=== PATIENT | female | born 2000 | race Caucasian/White ===

== ENCOUNTER 2022-10-15 19:50 | Inpatient (IN) ==
[2022-10-15 20:32] LABS: Appearance Urine Cloudy (Clear); Bacteria Urine Automated 1+ (Negative); Bilirubin Urine Negative (Negative); Blood Urine Trace (Negative); Color Urine Yellow; Epithelial Cell Urine Auto 20-30 /lpf (0-5); Glucose Urine UA Negative (Negative); Ketones Urine Negative (Negative); Leukocyte Esterase Urine Negative (Negative); Nitrite Urine Negative (Negative); Protein Urine Negative (Negative); Specific Gravity Urine 1.025 (1.000-1.030); Urobilinogen Urine Negative (Negative); pH Urine 8.5 (4.5-7.5)
[2022-10-15 20:58] LABS: Albumin Globulin Ratio 1.8 (0.9-2); Albumin Level 4.5 gm/dl (3.4-5.0); BUN Creatinine Ratio 14.3 (10-20); Bilirubin,Total 0.2 mg/dl (0.2-1.0); Calcium 9.7 mg/dl (8.6-10.3); Creatinine Clr Calc Pharmacy 109.8 ml/min; Est GFR (African American) 114.3 ml/min; Est GFR (Non-African American) 98.7 ml/min; Globulin 2.5 gm/dl (2.5-4.0); Potassium 3.9 mmol/L (3.5-5.1)
[2022-10-15 21:17] LABS: Basophils # (auto) 0.07 K/uL (0.00-0.20); Basophils % (auto) 0.4 %; Eosinophils % (auto) 0.5 %; Hematocrit (blood only) 41.5 % (37.0-47.0); Immature Granulocytes # (auto) 0.09 K/uL (0.01-0.20); Immature Granulocytes % (auto) 0.5 %; Lymphocytes # (auto) 2.33 K/uL (1.20-3.40); Lymphocytes % (auto) 12.5 %; Mean Corpuscular Hemoglobin 30.2 pg (25.0-34.0); Mean Corpuscular Hgb Conc 33.7 g/dL (32.0-36.0); Mean Corpuscular Volume 89.4 fL (80.0-100.0); Mean Platelet Volume 10.1 fL (9.4-12.4); Monocytes # (auto) 0.92 K/uL (0.11-0.59); Monocytes % (auto) 4.9 %; Neutrophils # (auto) 15.18 K/uL (1.40-6.50); Neutrophils % (auto) 81.2 %; Platelet Count 359 K/uL (130-400); RDW Coefficient of Variation 12.1 % (11.5-14.5); RDW Standard Deviation 39.3 fL (36.4-46.3); Red Blood Count 4.64 M/uL (4.20-5.40); White Blood Count 18.69 K/ul (4.8-10.8)
[2022-10-16] MEDS ORDERED: SODIUM CHLORIDE 0.9% 1,000 ML IV ONE (00:36)
[2022-10-16] MEDS ORDERED: ONDANSETRON INJ 2 MG/ML 2 ML VIAL IV STA (00:36)
[2022-10-16] MEDS ORDERED: HYDROmorphone INJ 0.5 MG/0.5 ML SYR IV STA (00:36)
[2022-10-16] MEDS ORDERED: OPTIRAY 320 100ml IV ONE (00:55)
--- NOTE | 2022-10-16 01:06 | Emergency Department Note ---
Impression & Plan Appendicitis ED Provider Note Name: GEN PRIDE Age: 22 Sex: F Arrives Via: Walk-In Informant: Patient ED Provider: Savage Chirinos MD Chief Complaint: Abdominal pain Impression: As per impression above Medical Decision Makin-year-old healthy female without significant past medical history arrives for evaluation of abdominal pain. Initially as periumbilical pain this morning which is now in the right lower quadrant. She has significant right lower quadr ant tenderness palpation. She has nausea and anorexia and an elevated white blood cell count. CT of the abdomen pelvis was obtained which shows early appendicitis. She was given IV antibiotics. General surgery was consulted and she will be taken to the OR. Patient is not septic at this time she is stable and she feels much better after some IV pain medications and fluids. Triage/Nursing Notes reviewed by Me Differentials:Appendicitis, ovarian torsion, PID, /ectopic, diverticulitis, cholecystitis, gastroenteritis amongst many other pathologies considered Vital Signs: reviewed and remarkable for no significant abnormalities Interventions: Normal saline bolus, Dilaudid IV, Zofran IV, Mefoxin 2 g IV Labs:Reviewed and remarkable for elevated white blood cell count Imaging:CT of the abdomen pelvis with IV contrast as per my informal interpretation reveals a dilated appendix without evidence of perforation or abscess. This was confirmed by radiologist. Consults:[facility] general surgery evaluated the patient and will plan to take her to the OR. Plan: Disposition:Hospitalization. Condition: Good History of Present Illness:22-year-old female arrives for evaluation of abdominal pain. Patient notes she started having some nausea and epigastric pain throughout the morning. As the afternoon went on to start developing more right lower quadrant pain. Patient states the pain is now severe in the right lower quadrant. No radiation of pain. Associate with nausea. No fevers, chills, syncope. She has no appetite today. No recent falls, trauma, injuries. She has no history of abdominal surgeries. Patient denies any concerns for possible . Pain is worse with ambulation Past History:No significant past medical history. Had wisdom teeth removed Home Medications:-control Allergies:none Vitals:Blood Pressure: 128/87, Pulse 78, RR 16, T 37.2C, O2 98% on RA Physical Exam: GENERAL: Patient is uncomfortable appearing and in moderate distress. RESPIRATORY: No dyspnea. Clear to auscultation and equal bilaterally. No wheeze, no rhonchi. CARDIOVASCULAR: Regular rate and rhythm.No murmurs, rubs, gallops appreciated. GASTROINTESTINAL: Moderate tenderness palpation right lower quadrant with g uarding abdomen soft EXTREMITIES: Normal motion all extremities, no cyanosis, no edema. NEUROLOGIC: Alert and oriented, no focal neurologic deficit appreciated SKIN: No rash, no jaundice, no diaphoresis. PSYCH: Appropriate GCS: 15 ED Course: Times/Reassessments: Patient feeling much better after some IV fluids and pain medications. She is agreeable to hospitalization. I did offer to discuss this with her parents who are in [place] though she notes they only speak [place] and does not feel it is necessary. Savage Chirinos MD Past Med/Surg History Social History Smoking Status: Never smoker Hx Alcohol Use: Yes Alcohol type: other Hx Substance Use: No Preferred Language: Croatian Communication Ability: Effective Hospital Pharmacy Director Required: No Beliefs That Will Affect Care: None Current Living Situation: Alone Other Information That Helps Us Care for You: No Feels Safe at Home: Yes Safety Concerns: Feels Safe At This Time Assistive Devices: None Allergies Allergies Allergy/AdvReac Type Severity Reaction Status Date / Time No Known Allergies Allergy Unverified 10/16/22 02:17 Home Meds Home Medications Medication Instructions Recorded Confirmed Control Pill 1 tab PO DAILY 10/16/22 10/16/22 ibuprofen 200 mg tablet (Advil) 400 mg PO Q6H PRN .Headache 10/16/22 10/16/22 Results & Data (ED) Vital Signs Vital Signs - 24 hr 10/15/22 19:55 10/16/22 00:36 10/16/22 00:59 Temperature 37.2 C 37.1 C Temperature Source Oral Oral Pulse Rate 78 94 H Pulse Rate [Finger] 74 Pulse Rate from SpO2 Sensor 97 H Respiratory Rate 16 14 27 H Respiratory Effort / Characteristics Non-Labored Spontaneous Respiratory Depth Normal Blood Pressure 128/87 Blood Pressure [Right Arm] 132/83 Blood Pressure Mean 100 Blood Pressure Mean [Right Arm] 99 Pulse Oximetry 98 97 96 Oxygen Delivery Method Room Air Sepsis Recent Fever Within 48 Hours No Sepsis New/Unexplained Change in Mental Status N/A Sepsis Action Taken by Nursing No Action Required 10/16/22 01:00 10/16/22 01:00 10/16/22 01:10 Temperature Temperature Source Pulse Rate 109 H 93 H Pulse Rate [Finger] Pulse Rate from SpO2 Sensor 107 H 90 Respiratory Rate 21 16 Respiratory Effort / Characteristics Respiratory Depth Blood Pressure 112/89 Blood Pressure [Right Arm] Blood Pressure Mean 104 Blood Pressure Mean [Right Arm] Pulse Oximetry 97 97 Oxygen Delivery Method Sepsis Recent Fever Within 48 Hours Sepsis New/Unexplained Change in Mental Status Sepsis Action Taken by Nursing 10/16/22 01:20 10/16/22 01:30 10/16/22 01:30 Temperature Temperature Source Pulse Rate 89 84 Pulse Rate [Finger] Pulse Rate from SpO2 Sensor 90 82 Respiratory Rate 16 17 Respiratory Effort / Characteristics Respiratory Depth Blood Pressure 132/83 Blood Pressure [Right Arm] Blood Pressure Mean 99 Blood Pressure Mean [Right Arm] Pulse Oximetry 97 97 Oxygen Delivery Method Sepsis Recent Fever Within 48 Hours Sepsis New/Unexplained Change in Mental Status Sepsis Action Taken by Nursing 10/16/22 01:49 10/16/22 01:50 Temperature Temperature Source Pulse Rate Pulse Rate [Finger] Pulse Rate from SpO2 Sensor 75 77 Respiratory Rate Respiratory Effort / Characteristics Respiratory Depth Blood Pressure Blood Pressure [Right Arm] Blood Pressure Mean Blood Pressure Mean [Right Arm] Pulse Oximetry 96 97 Oxygen Delivery Method Sepsis Recent Fever Within 48 Hours Sepsis New/Unexplained Change in Mental Status Sepsis Action Taken by Nursing Laboratory Data 10/15/22 20:11 10/15/22 20:11 Lab Results 10/15/22 10/15/22 10/15/22 Range/Units 20:09 20:11 20:11 WBC 18.69 H (4.8-10.8) K/ul RBC 4.64 (4.20-5.40) M/uL Hgb 14.0 (12.0-16.0) g/dl Hct 41.5 (37.0-47.0) % MCV 89.4 (80.0-100.0) fL MCH 30.2 (25.0-34.0) pg MCHC 33.7 (32.0-36.0) g/dL RDW Std Deviation 39.3 (36.4-46.3) fL RDW Coeff of Jesus 12.1 (11.5-14.5) % Plt Count 359 (130-400) K/uL MPV 10.1 (9.4-12.4) fL Immature Gran % (Auto) 0.5 % Neut % (Auto) 81.2 % Lymph % (Auto) 12.5 % Early % (Auto) 4.9 % Eos % (Auto) 0.5 % Baso % (Auto) 0.4 % Neut # (Auto) 15.18 H (1.40-6.50) K/uL Lymph # (Auto) 2.33 (1.20-3.40) K/uL Early # (Auto) 0.92 H (0.11-0.59) K/uL Eos # (Auto) 0.10 (0.00-0.50) K/uL Baso # (Auto) 0.07 (0.00-0.20) K/uL Immature Gran # (Auto) 0.09 (0.01-0.20) K/uL Sodium 135 L (136-145) mmol/L Potassium 3.9 (3.5-5.1) mmol/L Chloride 105 (98-107) mmol/L Carbon Dioxide 23 (21-32) mmol/L Anion Gap 7 (3-11) BUN 12 (6-23) mg/dl Creatinine 0.84 (0.6-1.2) mg/dl Est Cr Clr Drug Dosing 109.8 ml/min Est GFR ( Amer) 114.3 ml/min Est GFR (Non-Af Amer) 98.7 ml/min BUN/Creatinine Ratio 14.3 (10-20) Glucose 101 H (70-99(Fasting)) mg/dl Calcium 9.7 (8.6-10.3) mg/dl Total Bilirubin 0.2 (0.2-1.0) mg/dl AST 20 (13-39) U/L ALT 16 (7-52) U/L Alkaline Phosphatase 42 (34-104) U/L Total Protein 7.0 (6.0-8.3) gm/dl Albumin 4.5 (3.4-5.0) gm/dl Globulin 2.5 (2.5-4.0) gm/dl Albumin/Globulin Ratio 1.8 (0.9-2) Lipase 39 (11-82) U/L Urine Color Yellow Urine Appearance Cloudy A (Clear) Urine pH 8.5 H (4.5-7.5) Ur Specific [place] 1.025 (1.000-1.030) Urine Protein Negative (Negative) Urine Glucose (UA) Negative (Negative) Urine Ketones Negative (Negative) Urine Blood Trace H (Negative) Urine Nitrite Negative (Negative) Urine Bilirubin Negative (Negative) Urine Urobilinogen Negative (Negative) Ur Leukocyte Esterase Negative (Negative) Urine WBC (Auto) 1-5 (0-5) /hpf Urine RBC (Auto) 5-10 H (0-4) /hpf U Hyaline Cast (Auto) 1-5 (0-5) /lpf U Epithel Cells (Auto) 20-30 H (0-5) /lpf Urine Bacteria (Auto) 1+ H (Negative) Administered Medications Acetaminophen (Ofirmev) 1,000 mg in 100 mls @ 400 mls/hr IV Q8H PRN PRN Reason: moderate pain Stop: 10/19/22 01:48 Last Infusion: 10/16/22 04:58 Dose: 0 mls/hr Documented By: Admin: 10/16/22 04:43 Dose: 400 mls/hr Documented By: Infusion: 10/16/22 02:55 Dose: 0 mls/hr Documented By: Admin: 10/16/22 02:24 Dose: 400 mls/hr Documented By: ACC Sodium Chloride (Nss 1000ml) 1,000 mls @ 100 mls/hr IV .Q10H [facility] Stop: 11/15/22 01:59 Last Infusion: 10/16/22 07:44 Dose: 0 mls/hr Documented By: Admin: 10/16/22 04:40 Dose: 100 mls/hr Documented By: NMS Piperacillin Sod/Tazobactam (Sod 4.5 gm/ Dextrose) 120 mls @ 30 mls/hr IV Q8H REGGIE; Protocol Stop: 10/26/22 05:59 Last Admin: 10/16/22 05:50 Dose: 30 mls/hr Documented By: NMS Morphine Sulfate (Morphine Sulfate 4 Mg/Ml 1 Ml Carp\Vial) 3 mg IV Q3H PRN PRN Reason: Severe Pain (Scale 7, 8, 9,10) Stop: 10/30/22 01:48 Last Admin: 10/16/22 05:49 Dose: 3 mg Documented By: Admin: 10/16/22 02:54 Dose: 3 mg Documented By: ACC Discontinued Medications Hydromorphone HCl (Hydromorphone Inj 0.5 Mg/0.5 Ml Syr) 0.5 mg IV NOW STA Stop: 10/16/22 00:37 Last Admin: 10/16/22 00:39 Dose: 0.5 mg Documented By: ACC Sodium Chloride (Nss 1000ml) 1,000 mls @ 999 mls/hr IV .Q1H1M ONE Stop: 10/16/22 01:36 Last Infusion: 10/16/22 03:00 Dose: 0 mls/hr Documented By: Admin: 10/16/22 00:40 Dose: 999 mls/hr Documented By: ACC Cefoxitin Sodium (Mefoxin) 2,000 mg in 60 mls @ 100 mls/hr IV NOW STA Stop: 10/16/22 01:57 Last Admin: 10/16/22 02:22 Dose: Not Given Documented By: ACC Piperacillin Sod/Tazobactam Sod (Zosyn) 4.5 gm in 120 mls @ 240 mls/hr IV NOW ONE Stop: 10/16/22 02:16 Last Infusion: 10/16/22 03:00 Dose: 0 mls/hr Documented By: Admin: 10/16/22 01:58 Dose: 240 mls/hr Documented By: ACC Ioversol (Optiray 320 100ml) 92 ml IV ONCE ONE Stop: 10/16/22 00:56 Last Admin: 10/16/22 00:50 Dose: 92 ml Documented By: ADAM Ondansetron HCl (Ondansetron Inj 2 Mg/Ml 2 Ml Vial) 4 mg IV NOW STA Stop: 10/16/22 00:37 Last Admin: 10/16/22 00:40 Dose: 4 mg Documented By: ACC Imaging Data Radiologist's Impression: Abdomen/Pelvis CT 10/15/22 22:57 CR Exam(s): CT ABDOMEN + PELVIS With Contrast IV Amt: 92ml opti 320 EXAM: CT Abdomen and Pelvis With Intravenous Contrast CLINICAL HISTORY: Reason for exam: abdominal pain. TECHNIQUE: Axial computed tomography images of the abdomen and pelvis with intravenous contrast. CTDI is 20.18 mGy and DLP is 1085.46 mGy-cm. Automated exposure control was utilized for the study. A dose lowering technique was utilized adhering to the principles of ALARA. CONTRAST: Patient received 92ml opti 320 of IV contrast COMPARISON: None. FINDINGS: Lung bases: Unremarkable. No mass. No consolidation. ABDOMEN: Liver: Unremarkable. No mass. Gallbladder and bile ducts: Unremarkable. No calcified stones. No ductal dilation. Pancreas: Unremarkable. No mass. No ductal dilation. Spleen: Unremarkable. No splenomegaly. Adrenals: Unremarkable. No mass. Kidneys and ureters: Unremarkable. No solid mass. No hydronephrosis. Stomach and bowel: Unremarkable. No obstruction. No mucosal thickening. PELVIS: Appendix: The appendix measures up to 8.7 mm with mild surrounding stranding and enhancement of the wall concerning for very early acute appendicitis. No distinct appendicolith. Bladder: Unremarkable. No mass. Reproductive: Retroflexed uterus. ABDOMEN and PELVIS: Intraperitoneal space: Trace free fluid in the cul-de-sac. No free air. Bones/joints: No acute fracture. No dislocation. Soft tissues: Unremarkable. Vasculature: Unremarkable. No abdominal aortic aneurysm. Lymph nodes: Unremarkable. No enlarged lymph nodes. IMPRESSION: Possible very early acute appendicitis. Clinical correlation recommended and if indicated, surgical consultation recommended. Communications: Call Doctor Other Electronically signed by: Roseline Hernandez MD 10/16/22 01:29 AM Discharge Plan Visit Data Chief Complaint: Abdominal Pain Stated Complaint: APPENDITISITIS ED Provider: Savage Chirinos Discharge Problem: Appendicitis Patient Disposition: Admitted As Inpatient Discharge Instructions Interventions: ED Discharge Assessment Last Done: 10/16/22 04:19 Appendicitis Qualifiers: Appendicitis type: acute appendicitis Acute appendicitis type: with localized peritonitis Appendicitis gangrene presence: without gangrene Appendicitis p erforation presence: without perforation Appendicitis abscess presence: without abscess Qualified Code(s): K35.30 - Acute appendicitis with localized peritonitis, without perforation or gangrene
[2022-10-16] MEDS ORDERED: cefOXitin 2,000 MG/60 ML BAG IV STA (01:22)
--- NOTE | 2022-10-16 01:30 | CT Scan Report ---
Exam(s): CT ABDOMEN + PELVIS With Contrast IV Amt: 92ml opti 320 EXAM: CT Abdomen and Pelvis With Intravenous Contrast CLINICAL HISTORY: Reason for exam: abdominal pain. TECHNIQUE: Axial computed tomography images of the abdomen and pelvis with intravenous contrast. CTDI is 20.18 mGy and DLP is 1085.46 mGy-cm. Automated exposure control was utilized for the study. A dose lowering technique was utilized adhering to the principles of ALARA. CONTRAST: Patient received 92ml opti 320 of IV contrast COMPARISON: None. FINDINGS: Lung bases: Unremarkable. No mass. No consolidation. ABDOMEN: Liver: Unremarkable. No mass. Gallbladder and bile ducts: Unremarkable. No calcified stones. No ductal dilation. Pancreas: Unremarkable. No mass. No ductal dilation. Spleen: Unremarkable. No splenomegaly. Adrenals: Unremarkable. No mass. Kidneys and ureters: Unremarkable. No solid mass. No hydronephrosis. Stomach and bowel: Unremarkable. No obstruction. No mucosal thickening. PELVIS: Appendix: The appendix measures up to 8.7 mm with mild surrounding stranding and enhancement of the wall concerning for very early acute appendicitis. No distinct appendicolith. Bladder: Unremarkable. No mass. Reproductive: Retroflexed uterus. ABDOMEN and PELVIS: Intraperitoneal space: Trace free fluid in the cul-de-sac. No free air. Bones/joints: No acute fracture. No dislocation. Soft tissues: Unremarkable. Vasculature: Unremarkable. No abdominal aortic aneurysm. Lymph nodes: Unremarkable. No enlarged lymph nodes. IMPRESSION: Possible very early acute appendicitis. Clinical correlation recommended and if indicated, surgical consultation recommended. Communications: Call Doctor Other Electronically signed by: Roseline Hernandez MD 10/16/22 01:29 AM
[2022-10-16] MEDS ORDERED: PIPERACILLIN/TAZOBACTAM 4.5 GM/120 ML BAG IV ONE (01:47)
[2022-10-16] MEDS ORDERED: ONDANSETRON INJ 2 MG/ML 2 ML VIAL IV PRN ×2 (01:49→07:17)
--- NOTE | 2022-10-16 01:57 | History & Physical Report ---
Date of Service October 16, 2022 Assessment & Plan (1) Appendicitis: Plan: Due to the patient's clinical presentation, labs, and imaging findings she will be admitted to the hospital proceeding as follows: Analgesics will be provided Antiemetics to be provided We will hydrate with IV fluids We will implement n.p.o. status We will initiate antibiotics in the form of Zosyn. We will tentatively plan on having the patient undergo an appendectomy with Dr. Murrieta on 10/16/2022. Additional recommendations to be forthcoming based on operative findings and her postoperative recovery thereafter. 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 Patient notes that the abdominal pain began at approximate 11:00 AM on 10/15/2022. She notes that the pain was located throughout her abdomen in a generalized fashion but primarily in the periumb ilical region. She notes over the ensuing several hours that the pain has remained generalized to her abdomen but she did notice some more severe component of her pain in the right lower quadrant. She has felt nauseated but has not had any emesis. She denies any fevers, shakes, or chills. She does not report any palliative factors but does note that the pain seems to be worse with certain movements and when she takes deep breaths. She denies ever having any abdominal surgeries in the past. She notes her most recent oral intake was approximately 2:00 PM on 10/15/2022 (with the exception of oral contrast she consumed for her CAT scan upon presentation to the emergency department). Since arrival to the hospital the patient has had labs and imaging which independent reviewed. A CT scan showed that the appendix was measuring approximately 8.7 mm with mild surrounding stranding and enhancement concerning for an early acute appendicitis. No distinct appendicoliths were noted. There is no free intraperitoneal air. Labs include a CBC her white blood cell count was elevated 18.6. Hemoglobin, hematocrit, and platelet count were normal. Chemistry profile showed sodium was 135. Potassium, BUN, and creatinine were all normal. There is no elevation of patient's LFTs or lipase. A urinalysis was not indicative of infection. A urine test was noted to be negative. At the time of my interview the patient was resting comfortably in bed and she was in no distress. Concerning past medical history she denies any medical problems Concerning past surgical history the patient says she has had her wisdom teeth taken out Concerning allergies she denies any known medication allergies Concerning social history she is a non-smoker Concerning family history she says her father had an aortic aneurysm that required surgical correction Allergies Allergy/AdvReac Type Severity Reaction Status Date / Time No Known Allergies Allergy Unverified 10/16/22 02:17 Home Medications Medication Instructions Recorded Confirmed Type Control Pill 1 tab PO DAILY 10/16/22 10/16/22 History ibuprofen 200 mg tablet (Advil) 400 mg PO Q6H PRN .Headache 10/16/22 10/16/22 History Past Med/Surg History Social History Smoking Status: Never smoker Hx Alcohol Use: Yes Alcohol type: other Hx Substance Use: No Preferred Language: Northern Irish Communication Ability: Effective Administrative Assistant Receptionist Required: No Beliefs That Will Affect Care: None Current Living Situation: Alone Other Information That Helps Us Care for You: No Feels Safe at Home: Yes Safety Concerns: Feels Safe At This Time Assistive Devices: None Review of Systems Constitutional: no fever and no chills Ear, Nose, Mouth, Throat: no hearing loss Respiratory: no cough and no dyspnea Cardiovascular: no chest pain Gastrointestinal: as per Subjective / HPI Genitourinary: no dysuria Musculoskeletal: no back pain Integumentary: no rash Neurologic: no localized weakness Physical Exam Constitutional: WD/WN, vitals as above Eyes: no conjunctival abnormality ENMT: Ears: no hearing impairment and no external ear abnormality Mouth: no oropharynx abnormality Oral mucosa is moist Neck: trachea midline Respiratory: normal respiratory effort, lungs clear to auscultation Cardiovascular: Rate/Rhythm: regular rate and regular rhythm Vessels: dorsalis pedis pulses present and radial pulses present Gastrointestinal (Abdomen): Abdomen is soft, nondistended, nonrigid. Bowel sounds are present but hypoactive. There is pain noted with palpation in the right lower quadrant McBurney's point with only slight rebound tenderness. Musculoskeletal: No calf tenderness Skin: no rashes Neurologic: moves all extremities Psychiatric: A+Ox3, euthymic affect Results & Data Results & Data Vital Signs (Past 12 Hours) Vital Signs Temp Pulse Pulse Resp BP BP Pulse Ox 10/16/22 00:36 37.1 C 74 14 132/83 97 10/15/22 19:55 37.2 C 78 16 128/87 98 O2 Del Method 10/16/22 00:36 10/15/22 19:55 Room Air Supervising Physician Co-Signing Physician Notes I have examined the patient and reviewed her CT images. Early acute appendicitis is present. The patient will be taken to the operating room for a laparoscopic appendectomy. I have discussed the procedure with her including risks and benefits. Consent is obtained. PG Care Time/CCT Total # of Minutes Spent Total Time Spent with Patient: Total time spent is greater than 50% in coordination of care (as documented) at patient's floor/unit and/or counseling patient: Coding Level of Care Code 99949 INT INP/OBS CARE 3/75MIN Diagnoses Appendicitis K37
[2022-10-16] MEDS ORDERED: SODIUM CHLORIDE 0.9% 1,000 ML IV SCH (02:00)
[2022-10-16 02:11] LABS: Pregnancy Test, Urine Negative (Negative)
[2022-10-16] MEDS: ACETAMINOPHEN 1,000 MG/100 ML VIAL IV PRN ×2 (02:24→04:43)
[2022-10-16] MEDS: MoRPHine SULFATE 4 MG/ML 1 ML CARP\\VIAL IV PRN ×2 (02:54→05:49)
[2022-10-16] MEDS ORDERED: Nursing to Pharmacy Communication SCH (05:15)
[2022-10-16] MEDS: PIPERACILLIN/TAZOBACTAM 4.5 GM in DEXTROSE 5% 100 ML IV SCH ×3 (05:50→22:06)
[2022-10-16] MEDS ORDERED: ATROPINE SULFATE 0.1 MG/ML 10ML SYR IV PRN (07:17)
[2022-10-16] MEDS ORDERED: ePHEDrine sulfate 50 MG/ML AMP IV PRN (07:17)
[2022-10-16] MEDS ORDERED: fentaNYL citrate PF 100 MCG/2 ML VIAL IV PRN (07:17)
--- NOTE | 2022-10-16 07:17 | Anesthesiology Consultation ---
Date of Service October 16, 2022 Assessment & Plan Chart Review Chart Review: entry examiner initiated History Surgery Operation Date: 10/16/22 08:00 Proposed Procedures p Laparoscopic Appendectomy - Peggy Mathias DO Height/Weight Height: 5 ft 9 in Weight: 75 kg Allergies Allergy/AdvReac Type Severity Reaction Status Date / Time No Known Allergies Allergy Unverified 10/16/22 02:17 Medications Home Medications Medication Instructions Recorded Confirmed Last Taken Control Pill 1 tab PO DAILY 10/16/22 10/16/22 Unknown ibuprofen 200 mg tablet (Advil) 400 mg PO Q6H PRN .Headache 10/16/22 10/16/22 Unknown Active Medications Generic Name Dose Route Start Last Admin Trade Name Freq PRN Reason Stop Dose Admin Acetaminophen 1,000 mg in 100 mls @ 400 mls/hr 10/16/22 01:49 10/16/22 04:58 Ofirmev IV 10/19/22 01:48 Infused Q8H PRN Infusion moderate pain Sodium Chloride 1,000 mls @ 100 mls/hr 10/16/22 02:00 10/16/22 04:40 Nss 1000ml IV 11/15/22 01:59 100 mls/hr .Q10H REGGIE Administration Piperacillin Sod/Tazobactam 120 mls @ 30 mls/hr 10/16/22 06:00 10/16/22 05:50 Sod 4.5 gm/ Dextrose IV 10/26/22 05:59 30 mls/hr Q8H REGGIE Administration Protocol Morphine Sulfate 3 mg 10/16/22 01:49 10/16/22 05:49 Morphine Sulfate 4 Mg/Ml 1 Ml Carp\Vial IV 10/30/22 01:48 3 mg Q3H PRN Administration Severe Pain (Scale 7, 8, 9,10) Social History Smoking Status: Never smoker Hx Alcohol Use: Yes Alcohol type: other alcohol intake frequency: holidays/special occasions only Hx Substance Use: No Physical Exam Vital Signs Last Vital Signs Temp 98.1 F 10/16/22 04:35 Pulse 77 10/16/22 04:35 Resp 18 10/16/22 04:35 BP 123/85 10/16/22 04:35 Pulse Ox 99 10/16/22 04:35 O2 Del Method Room Air 10/16/22 04:35 Testing Laboratory Results 10/15/22 20:11 10/15/22 20:11 Urine Color Yellow 10/15/22 20:09 Urine Appearance Cloudy (Clear) A 10/15/22 20:09 Urine pH 8.5 (4.5-7.5) H 10/15/22 20:09 Ur Specific [place] 1.025 (1.000-1.030) 10/15/22 20:09 Urine Protein Negative (Negative) 10/15/22 20:09 Urine Glucose (UA) Negative (Negative) 10/15/22 20:09 Urine Ketones Negative (Negative) 10/15/22 20:09 Urine Nitrite Negative (Negative) 10/15/22 20:09 Ur Leukocyte Esterase Negative (Negative) 10/15/22 20:09 Urine WBC (Auto) 1-5 /hpf (0-5) 10/15/22 20:09 Urine RBC (Auto) 5-10 /hpf (0-4) H 10/15/22 20:09 U Hyaline Cast (Auto) 1-5 /lpf (0-5) 10/15/22 20:09 U Epithel Cells (Auto) 20-30 /lpf (0-5) H 10/15/22 20:09 Urine Bacteria (Auto) 1+ (Negative) H 10/15/22 20:09 Urine Test Negative (Negative) 10/16/22 Unknown 10/16/22 Unknown Urine Test Negative
[2022-10-16] MEDS ORDERED: fentaNYL citrate PF 100 MCG/2 ML VIAL ONE ×3 (07:25→10:00)
[2022-10-16] MEDS ORDERED: PROPOFOL IV EMULSION 10 MG/ML 20 ML VIAL IV ONE (07:25)
[2022-10-16] MEDS ORDERED: MIDAZOLAM HCL 1 MG/ML 2ML VIAL ONE (07:25)
[2022-10-16] MEDS ORDERED: LIDOCAINE 2% 2 ML VIAL/AMP(20MG/ML) INFIL ONE (07:25)
[2022-10-16] MEDS ORDERED: DEXAMETHASONE SOD INJ 4 MG/ML VIAL ONE (08:45)
[2022-10-16] MEDS ORDERED: ONDANSETRON INJ 2 MG/ML 2 ML VIAL ONE ×2 (08:45→09:56)
[2022-10-16] MEDS: BUPIVACAINE/EPINEPHRINE 0.5% MPF 1:200,000 30 ML VIAL ONE ×2 (09:00→10:22)
[2022-10-16] MEDS ORDERED: GLYCOPYRROLATE 0.2 MG/ML VIAL ONE (09:17)
[2022-10-16] MEDS ORDERED: NEOSTIGMINE METHYLSULFATE 1 MG/ML 10ML VIAL ONE (09:17)
--- NOTE | 2022-10-16 10:02 | Operative Report ---
PG Post Operative Report Pre & Post Diagnosis Operation Date: 10/16/22 08:00 Pre-Op Diagnosis: Appendicitis Post-Op Diagnosis: Appendicitis I identified the patient and participated in the time-out.: Yes Procedure Operation Date: 10/16/22 08:00 Actual Procedures p Laparoscopic Appendectomy(Not Applicable) - Peggy Mathias DO Surgeon Peggy Mathias DO Game Room Attendant Abby RING Estimated Blood Loss 2 Findings Consistent with Post-Op Diagnosis Specimens Appendix Anesthesia Type General Complications None Indications Acute appendicitis on exam and CT Description of Procedure The patient was brought back to the operating room and placed on the operating room table in supine position. SCDs were applied to b/l LE. She was connected to cardiac and O2 monitoring, administered general anesthesia and a secure airway was inserted. A Ibarra catheter was inserted. The abdomen was prepped and draped in typical sterile fashion and a timeout was conducted. The patient is on an antibiotic regimen started at presentation. Local anesthetic was injected into the skin and subcutaneous tissues at the inferior umbilicus and a small stab incision was made with an 11 blade. A Veress needle was used to access the intra-abdominal space and pneumoperitoneum was established to a goal pressure of 15mmHG. A 5mm laparoscope was used in a visiport to insert a 5mm trocar under direct visualization. A second 5mm trocar was inserted at the suprapubic region and a 12mm trocar was inserted at the LLQ in the same fashion and using direct visualization. The operating table was placed in left side down position and the appendix was identified using graspers. The appendix coursed retrocecal and was bluntly dissected away from peritoneal attachments. The appendix was dissected at its base from the cecum. A purple loaded EndoGIA was used to ligate and transect the appendix from the cecum. The appendix and appendiceal artery were ligated and transected away from the remaining mesoappendix using serial white loads. The appendix was placed in an endocatch bag and placed in a labeled container sent to pathology for further analysis. The RLQ was inspected for bleeding. A small area of l ight bleeding at the mesoappendiceal staple line was controlled with a 5mm clip. The RLQ was gently irrigated and suctioned. Fluid was suctioned from the pelvis. CO2 insufflation was discontinued, all instruments and trocars were removed. The fascia at the LLQ incision was closed with a 0-Vicryl suture. Additional local anesthetic was injected into the skin at all incision sites. The skin was closed with 4-0 Monocryl and Vicryl sutures. The incisions were sealed with Dermabond glue. The patient tolerated the procedure well. She was awakened from anesthesia, the secure airway was removed and she was transferred to recovery in stable condition. I attest to the content of the Intraoperative Record and any orders documented therein. Any exceptions are noted below.
[2022-10-16] MEDS ORDERED: MoRPHine SULFATE 2 MG/ML CARP IV PRN (10:27)
[2022-10-16] MEDS ORDERED: LACTATED RINGER'S 1,000 ML IV SCH (10:27)
[2022-10-16] MEDS ORDERED: oxyCODONE HCL IR 5 MG TAB (IMMEDIATE RELEASE) PO PRN (10:27)
--- NOTE | 2022-10-16 10:58 | Anesthesiology Progress Note ---
Date of Service October 16, 2022 Anesthesia Post Procedure Vital Signs Vital Signs: Temp Pulse Pulse Pulse Resp BP BP 10/16/22 10:30 98.1 F 82 16 119/76 10/16/22 10:20 66 14 126/73 10/16/22 10:10 98.8 F 70 12 115/73 10/16/22 10:00 71 13 134/76 10/16/22 09:50 71 20 117/69 10/16/22 09:40 97.7 F 84 20 124/57 L 10/16/22 07:31 98.1 F 60 16 108/71 10/16/22 04:35 98.1 F 77 18 123/85 10/16/22 04:19 61 16 129/79 10/16/22 04:00 61 16 129/79 10/16/22 02:30 77 22 10/16/22 02:20 70 17 10/16/22 02:10 10/16/22 02:00 10/16/22 01:50 10/16/22 01:49 10/16/22 01:30 84 17 10/16/22 01:30 132/83 10/16/22 01:20 89 16 10/16/22 01:10 93 H 16 10/16/22 01:00 109 H 21 10/16/22 01:00 112/89 10/16/22 00:59 94 H 27 H 10/16/22 02:00 65 10/16/22 00:36 98.8 F 74 14 132/83 10/15/22 19:55 99.0 F 78 16 128/87 Pulse Ox O2 Del Method 10/16/22 10:30 96 Room Air 10/16/22 10:20 97 Room Air 10/16/22 10:10 98 Room Air 10/16/22 10:00 100 Room Air 10/16/22 09:50 100 Room Air 10/16/22 09:40 100 Room Air 10/16/22 07:31 97 Room Air 10/16/22 04:35 99 Room Air 10/16/22 04:19 97 Room Air 10/16/22 04:00 97 Room Air 10/16/22 02:30 98 10/16/22 02:20 97 10/16/22 02:10 97 10/16/22 02:00 97 10/16/22 01:50 97 10/16/22 01:49 96 10/16/22 01:30 97 10/16/22 01:30 10/16/22 01:20 97 10/16/22 01:10 97 10/16/22 01:00 97 10/16/22 01:00 10/16/22 00:59 96 10/16/22 02:00 97 Room Air 10/16/22 00:36 97 10/15/22 19:55 98 Room Air Pain Intensity Abdomen: Pain Intensity: 2 Transfer of Care Handoff Completed per policy Notes Mental Status: alert / awake / arousable and participated in evaluation Patient Amnestic to Procedure: Yes Nausea / Vomiting: adequately controlled Pain: adequately controlled Airway Patency, RR, SpO2: stable & adequate BP & HR: stable & adequate Hydration State: stable & adequate Anesthetic Complications: no major complications apparent and Pt Satisfied with anesthetic care
[2022-10-16] MEDS: oxyCODONE HCL IR 5 MG TAB (IMMEDIATE RELEASE) PO PRN ×3 (13:35→22:10)
[2022-10-16] MEDS: SODIUM CHLORIDE 0.9% 1,000 ML IV SCH (15:13)
[2022-10-17] MEDS: SODIUM CHLORIDE 0.9% 1,000 ML IV SCH (02:37)
[2022-10-17] MEDS: PIPERACILLIN/TAZOBACTAM 4.5 GM in DEXTROSE 5% 100 ML IV SCH (05:23)
[2022-10-17 06:24] LABS: Basophils # (auto) 0.03 K/uL (0.00-0.20); Basophils % (auto) 0.3 %; Eosinophils # (auto) 0.09 K/uL (0.00-0.50); Eosinophils % (auto) 0.9 %; Hematocrit (blood only) 32.1 % (37.0-47.0); Hemoglobin 10.9 g/dl (12.0-16.0); Immature Granulocytes # (auto) 0.03 K/uL (0.01-0.20); Immature Granulocytes % (auto) 0.3 %; Lymphocytes # (auto) 2.79 K/uL (1.20-3.40); Lymphocytes % (auto) 26.6 %; Mean Corpuscular Hemoglobin 30.5 pg (25.0-34.0); Mean Corpuscular Volume 89.9 fL (80.0-100.0); Monocytes # (auto) 0.92 K/uL (0.11-0.59); Monocytes % (auto) 8.8 %; Neutrophils # (auto) 6.64 K/uL (1.40-6.50); Neutrophils % (auto) 63.1 %; Platelet Count 228 K/uL (130-400); RDW Coefficient of Variation 12.3 % (11.5-14.5); RDW Standard Deviation 40.4 fL (36.4-46.3); Red Blood Count 3.57 M/uL (4.20-5.40)
[2022-10-17 06:33] LABS: BUN Creatinine Ratio 9.9 (10-20); Calcium 8.4 mg/dl (8.6-10.3); Creatinine Clr Calc Pharmacy 113.9 ml/min; Est GFR (African American) 119.5 ml/min; Est GFR (Non-African American) 103.1 ml/min; Potassium 3.7 mmol/L (3.5-5.1)
--- NOTE | 2022-10-17 09:30 | Surgery Progress Note ---
I have seen and examined this patient with the surgical PA. I agree with the plan Date of Service October 17, 2022 Assessment & Plan (1) Appendicitis: Plan: POD#1 laparoscopic appendectomy WBC 10.8, Hbg 10, Cr 0.8. Vital signs are stable Expected post op discomfort, some gas/bloating Will provide patient with an IS for breathing and encourage ambulation Will continue full liquids today and allow her to transition to low fiber after she has a BM. will ask nutrition to see patient and provide some education Discussed post op care, returning to school, golf, activity in detail with patient Will plan on discharge today after lunch if doing well, f/u in clinic with the surgeon in 1-2 weeks for follow up. Admission and Anticipated Discharge Date Admission Date: October 16, 2022 Subjective Patient is doing fairly well. Pain is "okay". Tolerating fulls without issues, but reports some mild bloating. Requesting advice on diet. Physical Exam Physical Exam: awake/alert, no distress Respiratory: normal respiratory effort Gastrointestinal (Abdomen): Percussion/Palpation: + abdomen tender (expected jimbo incisional discomfort ) and abdomen soft Results & Data Vital Signs (Past 12 Hours) Vital Signs Temp Pulse Pulse Resp BP Pulse Ox O2 Del Method 10/17/22 07:59 37.1 C 62 16 120/72 96 Room Air 10/17/22 02:44 36.8 C 61 16 101/63 97 Room Air 10/17/22 00:03 36.9 C 74 16 103/52 L 96 Room Air PG Care Time/CCT Total # of Minutes Spent Total Time Spent with Patient: Total time spent is greater than 50% in coordination of care (as documented) at patient's floor/unit and/or counseling patient: Coding Level of Care Code 57206 Post Operative Follow-Up Diagnoses Appendicitis K35.30 Acute appendicitis type: with localized peritonitis Appendicitis abscess presence: without abscess Appendicitis gangrene presence: without gangrene Appendicitis perforation presence: without perforation Appendicitis type: acute appendicitis (1) Appendicitis Acute appendicitis type: with localized peritonitis Appendicitis abscess presence: without abscess Appendicitis gangrene presence: without gangrene Appendicitis perforation presence: without perforation Appendicitis type: acute appendicitis Qualified Code(s): K35.30 - Acute appendicitis with localized peritonitis, without perforation or gangrene
--- NOTE | 2022-10-24 08:57 | Discharge Summary ---
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 Patient notes that the abdominal pain began at approximate 11:00 AM on 10/15/2022. She notes that the pain was located throughout her abdomen in a generalized fashion but primarily in the periumbilical region. She notes over the ensuing several hours that the pain has remained generalized to her abdomen but she did notice some more severe component of her pain in the right lower quadrant. She has felt nauseated but has not had any emesis. She denies any fevers, shakes, or chills. She does not report any palliative factors but does note that the pain seems to be worse with certain movements and when she takes deep breaths. She denies ever having any abdominal surgeries in the past. She notes her most recent oral intake was approximately 2:00 PM on 10/15/2022 (with the exception of oral contrast she consumed for her CAT scan upon presentation to the emergency department). Since arrival to the hospital the patient has had labs and imaging which independent reviewed. A CT scan showed that the appendix was measuring approximately 8.7 mm with mild surrounding stranding and enhancement concerning for an early acute appendicitis. No distinct appendicoliths were noted. There is no free intraperitoneal air. Labs include a CBC her white blood cell count was elevated 18.6. Hemoglobin, hematocrit, and platelet count were normal. Chemistry profile showed sodium was 135. Potassium, BUN, and creatinine were all normal. There is no elevation of patient's LFTs or lipase. A urinalysis wa s not indicative of infection. A urine test was noted to be negative. At the time of my interview the patient was resting comfortably in bed and she was in no distress. Concerning past medical history she denies any medical problems Concerning past surgical history the patient says she has had her wisdom teeth taken out Concerning allergies she denies any known medication allergies Concerning social history she is a non-smoker Concerning family history she says her father had an aortic aneurysm that required surgical correction Principal Diagnosis acute appendicitis Discharge Exam awake/alert, no distress Respiratory normal respiratory effort Gastrointestinal (Abdomen) Percussion/Palpation: + abdomen tender (expected jimbo incisional discomfort ) and abdomen soft Discharge Data Allergies Allergy/AdvReac Type Severity Reaction Status Date / Time No Known Allergies Allergy Unverified 10/16/22 02:17 Consultations 10/16/22 01:39 ED Decision to Admit Stat Procedures Performed Operation Date: 10/16/22 08:00 Actual Procedures p Laparoscopic Appendectomy(Not Applicable) - Peggy Mathias DO Ordered Studies 10/15/22 22:57 CT abd pelvis oral and IV con Stat Hospital Course (1) Appendicitis: This is a 22yF who presented to the [facility] ED on 10/16/22 with abdominal pain. Workup in the ED showed a WBC of 18.[address] a/p concerning for acute appendicitis. The patient was tender to palpation in the RLQ. Patient made NPO with IVF and booked for the OR. On 10/16/22 the patient went to the OR with Dr. Mathias for a laparoscopic appendectomy. The patient tolerated the procedure well, see operative report for full details. Post operatively the patient's diet was advanced from clears to full liquids, pain managed on prn meds, and incisions clean/dry/intact. On POD#1 the patient was deemed stable for discharge to home. She was instructed to continue on a full liquid diet and may advance to low fiber once she has a bowel movement. Also instructed to follow up in clinic within 2 weeks time. Discharge instructions reviewed with the patient and she demonstrated understanding. Total Time Total Time Spent Total Time Spent (In Minutes): 15 Discharge Plan Discharge Items Patient Disposition: Home - Self-Care Reason For Visit: APPY Discharge Diagnosis: acute appendicitis Activity: Per Instructions section Lifting: No more than 10 pounds Bathing Comment: may shower starting 10/17/22; no soaking in tubs/pools x 2 weeks Exercise/Sports: Wait until after follow-up appointment Driving/Machine Use: no driving while taking narcotics for pain Non-emergency contact: Surgeon Call non-emergency contact if: you have any medication questions, your symptoms worsen, your pain is not controlled, you have a fever, your temperature is above 101.5, your wound has increased redness, your wound has increased drainage and your wound pain has increased Follow-up/Referrals: Peggy Mathias DO [Physician] - 10/30/22 1:30 pm (Please call to schedule follow up in clinic within 2 weeks ) PCP,NO [Primary Care Provider] - Diet: Full liquid Addtl Attending Provider Instructions: You may purchase Tylenol and/or Ibuprofen (ibuprofen you may use starting 10/18) over the counter if needed for additional pain control over the next few days. Take per manufacturers instructions You have skin glue over your incisions called dermabond. you may shower with this on. It will tend to dissolve and fall off within a couple weeks. Do not pick at the skin glue You will be discharged to home on a full liquid diet today. Once you have a bowel movement you may start on a low fiber diet. You will be provided with some education on a low fiber diet to continue over the next week or so. Pending Studies at Discharge: Yes Studies:: surgical pathology Stand-Alone Forms: My [facility] [place], Work/School Release, Smoking Cessation Medications and DC Order Prescriptions: New oxycodone 5 mg tablet 5 - 10 mg PO .[id number] PRN (Reason: pain, for initial therapy, max 6 tabs per day) Qty: 10 0RF Continued Control Pill 1 tab PO DAILY ibuprofen [Advil] 200 mg Tablet 400 mg PO Q6H PRN (Reason: .Headache) Discharge Orders: Discharge Order (Routine); Ordered 10/17/22 Ordered By: Abby Flores Admission Data Admit Date/Time: 10/16/22 01:59 Attending Provider: Peggy Mathias Admit Provider: Peggy Mathias Primary Care Provider: PCP,NO Other Providers: Peggy Mathias Other Interventions: Discharge Summary Assessment (RN) Last Done: 10/17/22 12:58 Coding Level of Care Code 43413 IN/OBS DISCH 30 MIN/LESS Diagnoses Appendicitis K35.30 Acute appendicitis type: with localized peritonitis Appendicitis abscess presence: without abscess Appendicitis gangrene presence: without gangrene Appendicitis perforation presence: without perforation Appendicitis type: acute appendicitis
== END 2022-10-17 14:35 | disposition home or self-care (01) | DRG 343 ==
LOC: ED 19:50 → 3W 10-16 01:59
DX: K35.80 Unspecified acute appendicitis; Z79.3 Long term (current) use of hormonal contraceptives; Z82.49 Family history of ischemic heart disease and other diseases of the circulatory system; Z88.6 Allergy status to analgesic agent